=== PATIENT | female | born 1950 | race Caucasian/White ===

== ENCOUNTER 2016-09-15 10:51 | Outpatient (CLI) | payer MEDICARE, OTHER | END 2016-09-15 10:52 | disposition home or self-care (01) | DX: H34.9 Unspecified retinal vascular occlusion (principal); H35.60 Retinal hemorrhage, unspecified eye ==

== ENCOUNTER 2016-09-23 16:54 | Outpatient (CLI) | payer MEDICARE, OTHER | END 2016-09-23 16:55 | disposition home or self-care (01) | DX: I77.6 Arteritis, unspecified (principal); H53.9 Unspecified visual disturbance; I10 Essential (primary) hypertension ==

== ENCOUNTER 2016-10-08 | Outpatient (CLI) | payer MEDICARE, OTHER | END 2016-10-08 08:46 | disposition home or self-care (01) | DX: R06.09 Other forms of dyspnea (principal) ==

== ENCOUNTER 2016-10-08 15:10 | Outpatient (CLI) | payer MEDICARE, OTHER | END 2016-10-08 15:11 | disposition home or self-care (01) | DX: R06.09 Other forms of dyspnea (principal) ==

== ENCOUNTER 2016-10-09 13:21 | Outpatient (CLI) | payer MEDICARE, OTHER | END 2016-10-09 13:22 | disposition home or self-care (01) | DX: R06.09 Other forms of dyspnea (principal); R79.1 Abnormal coagulation profile ==

== ENCOUNTER 2016-10-12 07:32 | Outpatient (CLI) | payer MEDICARE, OTHER | END 2016-10-12 07:33 | disposition home or self-care (01) | DX: R79.1 Abnormal coagulation profile (principal); R06.02 Shortness of breath ==

== ENCOUNTER 2016-11-26 15:52 | Outpatient (CLI) | payer MEDICARE, OTHER | END 2016-11-26 15:53 | disposition home or self-care (01) | DX: R06.00 Dyspnea, unspecified (principal); I10 Essential (primary) hypertension; R07.89 Other chest pain; Z68.41 Body mass index [BMI] 40.0-44.9, adult ==

== ENCOUNTER 2017-01-22 08:41 | Outpatient (CLI) | payer MEDICARE, OTHER | END 2017-01-22 08:42 | disposition home or self-care (01) | DX: I25.810 Atherosclerosis of coronary artery bypass graft(s) without angina pectoris (principal) ==

== ENCOUNTER 2017-05-21 07:46 | Outpatient (CLI) | payer MEDICARE, OTHER | END 2017-05-21 07:47 | disposition home or self-care (01) | LOC: LAB.N 07:46 | PROVIDERS: ATTEND Nurse Practitioner Gerontology | DX: E87.5 Hyperkalemia (principal) | CPT/HCPCS: 36415; 84132 ==

== ENCOUNTER 2017-08-17 14:53 | Outpatient (CLI) | payer MEDICARE, OTHER | END 2017-08-17 14:54 | disposition home or self-care (01) | LOC: LAB.N 14:53 | PROVIDERS: ATTEND Nurse Practitioner Gerontology | DX: E87.5 Hyperkalemia (principal) | CPT/HCPCS: 36415; 84132 ==

== ENCOUNTER 2017-09-02 08:50 | Outpatient (CLI) | payer MEDICARE, OTHER | END 2017-09-02 08:51 | disposition home or self-care (01) | LOC: RT 08:50 | PROVIDERS: ATTEND Internal Medicine Cardiovascular Disease | DX: I25.10 Atherosclerotic heart disease of native coronary artery without angina pectoris (principal) | CPT/HCPCS: 93005 ==

== ENCOUNTER 2017-12-03 08:00 | Outpatient (CLI) | payer MEDICARE, OTHER ==
[2017-12-03 12:45] LABS: BASOPHILS % (AUTO) 0.7 %; EOSINOPHILS # (AUTO) 0.2 10^3/uL (0.0-0.7); EOSINOPHILS % (AUTO) 3.2 %; HGB - HEMOGLOBIN 13.8 g/dL (12.0-16.0); LYMPHOCYTES # (AUTO) 2.5 10^3/uL (1.5-3.5); LYMPHOCYTES % (AUTO) 35.9 %; MEAN CORPUSCULAR HEMOGLOBIN 31.3 pg (27.0-31.0); MEAN CORPUSCULAR HGB CONC 34.2 g/dL (32.0-36.0); MEAN CORPUSCULAR VOLUME 91.5 fL (81.0-99.0); MEAN PLATELET VOLUME 8.7 fL (7.9-10.8); MONOCYTES # (AUTO) 0.6 10^3/uL (0.0-1.0); NEUTROPHILS # (AUTO) 3.6 10^3/uL (1.5-6.6); NEUTROPHILS % (AUTO) 52.2 %; PLT - PLATELET COUNT 220 10^3/uL (130-450); RED BLOOD COUNT 4.43 10^6/uL (4.20-5.40); RED CELL DISTRIBUTION WIDTH 13.4 % (12.0-15.0); WHITE BLOOD COUNT 6.9 x10^3/uL (4.8-10.8)
[2017-12-03 13:10] LABS: ALBUMIN/GLOBULIN RATIO 1.1 (1.0-2.2); ALKALINE PHOSPHATASE 60 IU/L (42-121); ALT ALANINE AMINOTRANSFERASE 20 IU/L (10-60); AST ASPARTATE AMINOTRANSFERASE 22 IU/L (10-42); BILIRUBIN,TOTAL 0.5 mg/dL (0.2-1.0); BUN - BLOOD UREA NITROGEN 22 mg/dL (6-20); CALCIUM 9.1 mg/dL (8.5-10.3); CARBON DIOXIDE - CO2 24 mmol/L (21-32); CHLORIDE 105 mmol/L (101-111); CHOL/HDL RATIO 6.1 (<4.4); CHOLESTEROL 209 mg/dL; CREATININE 0.9 mg/dL (0.4-1.0); GFR - MDRD 63 (>89); GLUCOSE 89 mg/dL (70-100); HDL CHOLESTEROL 34 mg/dL; LDL CHOLESTEROL,CALCULATED 122 mg/dL; LDL/HDL RATIO 3.6 (<4.4); SODIUM 138 mmol/L (135-145); TOTAL PROTEIN 7.5 g/dL (6.7-8.2); VLDL CHOLESTEROL 53 mg/dL
== END 2017-12-03 08:01 | disposition home or self-care (01) ==
LOC: LAB.N 08:00
PROVIDERS: ATTEND Nurse Practitioner Gerontology
DX: E87.5 Hyperkalemia (principal); I10 Essential (primary) hypertension; I25.10 Atherosclerotic heart disease of native coronary artery without angina pectoris
CPT/HCPCS: 36415; 80053; 80061; 83721; 85025

== ENCOUNTER 2018-08-10 09:02 | Outpatient (CLI) | payer MEDICARE, OTHER ==
--- NOTE | 2018-08-10 10:15 | XRAY Report ---
Reason: HIP JOINT PAIN, RIGHT Procedure Date: 08/10/2018 Accession Number: [id number] / [id number] Procedure: XR - Hip w/Pelvis 2-3V RT CPT Code: FULL RESULT: EXAM: RIGHT HIP AND PELVIS RADIOGRAPHY EXAM DATE: 08/10/2018 09:19 AM. HISTORY: Right hip joint pain. COMPARISONS: None. TECHNIQUE: 1 view of the pelvis and 1 view of the hip. FINDINGS: Bones: Normal. No fracture or bone lesion. Joints: The bilateral hip joints are mildly narrowed, right greater than left. The pubis symphysis and sacroiliac joints are preserved. Soft Tissues: Normal. No soft tissue swelling. IMPRESSION: Mild degenerative hip disease. [facility]
== END 2018-08-10 09:03 | disposition home or self-care (01) ==
LOC: DI 09:02
PROVIDERS: ATTEND Nurse Practitioner Gerontology
DX: M16.0 Bilateral primary osteoarthritis of hip (principal)

== ENCOUNTER 2019-08-15 07:30 | Outpatient (CLI) | payer MEDICARE, OTHER ==
[2019-08-15 12:29] LABS: BASOPHILS % (AUTO) 0.4 %; EOSINOPHILS # (AUTO) 0.3 10^3/uL (0.0-0.7); HGB - HEMOGLOBIN 13.6 g/dL (12.0-16.0); LYMPHOCYTES # (AUTO) 2.3 10^3/uL (1.5-3.5); LYMPHOCYTES % (AUTO) 33.8 %; MEAN CORPUSCULAR HEMOGLOBIN 30.2 pg (27.0-31.0); MEAN CORPUSCULAR HGB CONC 31.6 g/dL (32.0-36.0); MEAN CORPUSCULAR VOLUME 95.8 fL (81.0-99.0); MEAN PLATELET VOLUME 10.5 fL (7.9-10.8); MONOCYTES # (AUTO) 0.7 10^3/uL (0.0-1.0); MONOCYTES % (AUTO) 10.2 %; NEUTROPHILS # (AUTO) 3.4 10^3/uL (1.5-6.6); NEUTROPHILS % (AUTO) 50.5 %; PLT - PLATELET COUNT 232 10^3/uL (130-450); RED CELL DISTRIBUTION WIDTH 13.7 % (12.0-15.0); WHITE BLOOD COUNT 6.7 x10^3/uL (4.8-10.8)
[2019-08-15 12:37] LABS: ALBUMIN/GLOBULIN RATIO 1.1 (1.0-2.2); ALKALINE PHOSPHATASE 59 IU/L (42-121); ALT ALANINE AMINOTRANSFERASE 25 IU/L (10-60); AST ASPARTATE AMINOTRANSFERASE 25 IU/L (10-42); BILIRUBIN,TOTAL 0.7 mg/dL (0.2-1.0); BUN - BLOOD UREA NITROGEN 21 mg/dL (6-20); CALCIUM 8.9 mg/dL (8.5-10.3); CARBON DIOXIDE - CO2 26 mmol/L (21-32); CHLORIDE 104 mmol/L (101-111); CHOLESTEROL 216 mg/dL; GFR - MDRD 55 (>89); GLUCOSE 101 mg/dL (70-100); HDL CHOLESTEROL 36 mg/dL; LDL CHOLESTEROL,CALCULATED 136 mg/dL; LDL/HDL RATIO 3.8 (<4.4); SODIUM 139 mmol/L (135-145); TOTAL PROTEIN 7.5 g/dL (6.7-8.2); VLDL CHOLESTEROL 44 mg/dL
== END 2019-08-15 23:59 | disposition home or self-care (01) ==
LOC: LAB.N 07:30
PROVIDERS: ATTEND Nurse Practitioner Gerontology
DX: E78.00 Pure hypercholesterolemia, unspecified (principal); E87.5 Hyperkalemia; I10 Essential (primary) hypertension
CPT/HCPCS: 36415; 80053; 80061; 83721; 85025

== ENCOUNTER 2020-06-25 08:00 | Outpatient (CLI) | payer MEDICARE, OTHER ==
[2020-06-26 19:56] LABS: CANDIDA GROUP DNA NEGATIVE (NEGATIVE); CANDIDA KRUSEI DNA NEGATIVE (NEGATIVE); TRICHOMONAS VAGINALIS DNA NEGATIVE (NEGATIVE)
== END 2020-06-25 23:59 | disposition home or self-care (01) ==
LOC: LAB.R 08:00
PROVIDERS: ATTEND Obstetrics & Gynecology
DX: B37.89 Other sites of candidiasis (principal)
CPT/HCPCS: 87661; 87801

== ENCOUNTER 2020-07-31 15:07 | Outpatient (CLI) | payer MEDICARE, OTHER | END 2020-07-31 15:08 | disposition home or self-care (01) | LOC: COV 15:07 | PROVIDERS: ATTEND Family Medicine | DX: R05 Cough (principal); Z20.828 Contact with and (suspected) exposure to other viral communicable diseases; R06.02 Shortness of breath; R09.81 Nasal congestion; R19.7 Diarrhea, unspecified; R11.2 Nausea with vomiting, unspecified; R43.9 Unspecified disturbances of smell and taste; R53.83 Other fatigue ==